=== PATIENT | male | born 1965 | race Caucasian/White ===

== ENCOUNTER → 2018-11-03 | Outpatient (CLI) | payer OTHER ==
--- NOTE | 2018-11-04 08:04 | XR ---
EXAMINATION TYPE: XR lumbosacral spine min 4V DATE OF EXAM: 11/03/2018 CLINICAL HISTORY: pain COMPARISON: NONE TECHNIQUE: Frontal, lateral, and oblique images of the lumbar spine are obtained. FINDINGS: There are 5 lumbar type vertebral bodies identified. The lumbar spine shows satisfactory alignment without evidence of acute fracture or dislocation. Vertebral body heights are within normal limits. Mild degenerative disc space narrowing L3-4 and L4-5 and moderate narrowing at L5-S1. Scatte red ventral spondylosis. Mild lower lumbar facet joint arthropathy. The overlying soft tissue appea rs unremarkable. IMPRESSION: No acute fracture or dislocation is seen in the lumbar spine.ICD 10 NO FRACTURE, INITIAL EVALUATION
--- NOTE | 2018-11-04 08:05 | XR ---
EXAMINATION TYPE: XR sacroiliac joint comp BILAT DATE OF EXAM: 11/03/2018 CLINICAL HISTORY: Pain, osteoarthritis TECHNIQUE: 4 views of the sacroiliac joints are submitted. COMPARISON: None. FINDINGS: The sacroiliac joints appear symmetric without evidence for abnormal widening or sclerosis . There is no acute fracture/dislocation evident within the visualized pelvis. The overlying soft ti ssue appears unremarkable. IMPRESSION: No evidence for sacroiliitis.
--- NOTE | 2018-11-04 08:09 | XR ---
EXAMINATION TYPE: XR scoliosis survey DATE OF EXAM: 11/03/2018 COMPARISON: NONE HISTORY: Pain, scoliosis TECHNIQUE: AP and lateral views of the thoracolumbar spine are submitted for scoliosis panel FINDINGS: There is a thoracic scoliosis convex to the left of 10 degrees. Mild degenerative change no norma of the thoracic disc spaces with spondylosis. 2 degree scoliosis of the lumbar spine convex to th e right. IMPRESSION: Thoracolumbar curvature as noted.
== END ==
LOC: RADXRMAIN 14:11
PROVIDERS: ATTEND Family Medicine Addiction Medicine
DX: M47.817 Spondylosis without myelopathy or radiculopathy, lumbosacral region (principal); M43.8X5 Other specified deforming dorsopathies, thoracolumbar region
CPT/HCPCS: 72082; 72110; 72202